=== PATIENT | female | born 1970 | race Caucasian/White ===

== ENCOUNTER 2017-12-16 14:13 | Outpatient (CLI) | payer OTHER | END 2017-12-16 14:14 | disposition home or self-care (01) | LOC: BICMAMMO 14:13 | PROVIDERS: ATTEND Family Medicine | DX: Z12.31 Encounter for screening mammogram for malignant neoplasm of breast (principal) | CPT/HCPCS: 77063; 77067 ==

== ENCOUNTER 2019-04-24 15:05 | Outpatient (CLI) | payer OTHER ==
--- NOTE | 2019-04-24 15:59 | MMO ---
Bilateral MAMMO Bilat Screen [facility]. CLINICAL HISTORY: Patient is 48 years old and is seen for screening. The patient has no family history of breast cancer. The patient has no personal history of cancer. VIEWS: The views performed were: bilateral craniocaudal with tomosynthesis and bilateral mediolateral oblique with tomosynthesis. FILMS COMPARED: The present examination has been compared to prior imaging studies performed at [facility] on 08/20/2009, 01/06/2015, 12/01/2016 and 12/16/2017. This study has been interpreted with the assistance of computer-aided detection. MAMMOGRAM FINDINGS: The breasts are heterogeneously dense, which could obscure a lesion on mammography. Benign calcifications are noted bilaterally. There are no suspicious masses, suspicious calcifications, or new areas of architectural distortion. IMPRESSION: THERE IS NO MAMMOGRAPHIC EVIDENCE OF MALIGNANCY. A ROUTINE FOLLOW-UP MAMMOGRAM IN 1 YEAR IS RECOMMENDED. THE RESULTS OF THIS EXAM WERE SENT TO THE PATIENT. ACR BI-RADS Category 2 - Benign finding MAMMOGRAPHY NOTE: 1. A negative mammogram report should not delay a biopsy if a dominant of clinically suspicious mass is present. 2. Approximately 10% to 15% of breast cancers are not detected by mammography. 3. Adenosis and dense breasts may obscure an underlying neoplasm. Reported by: MELA WALLACE MD Electonically Signed: [id number]
== END 2019-04-24 15:06 | disposition home or self-care (01) ==
LOC: BICMAMMO 15:05
PROVIDERS: ATTEND Family Medicine
DX: Z12.31 Encounter for screening mammogram for malignant neoplasm of breast (principal)
CPT/HCPCS: 77063; 77067

== ENCOUNTER 2020-01-08 07:29 | Outpatient (CLI) | payer OTHER ==
--- NOTE | 2020-01-08 08:29 | CT ---
EXAM: CT ABDOMEN AND PELVIS HISTORY: Lower abdominal pain. Hematuria. COMPARISON: None. Procedure: Multiple contiguous axial images were obtained and a CT of the abdomen and pelvis with IV contrast. C oronal reformats were performed. FINDINGS: Lower Chest: within normal limits. Vessels: Normal caliber aorta. Heart: Normal heart size Abdomen: Portal vein:Patent Gallbladder: No calcified gallstones. Normal caliber wall. Liver: within normal limits. Pancreas: within normal limits. Spleen: within normal limits. Adrenals: within normal limits. Kidneys: Symmetric enhancement. No obstructive uropathy. Peritoneum: No ascites or free air, no fluid collection. Bowel: Limited evaluation due to the lack of oral contrast administration. No evidence of bowel obstr uction. Ileocecal junction is unremarkable. Normal caliber appendix. Scattered fecal material in a nondistended, nondilated colon. Mesentery and Retroperitoneum: No enlarged mesenteric or retroperitoneal lymph nodes. Abdominal Wall: Umbilical hernia containing mesenteric fat Pelvis: Reproductive Organs: Uterus has a heterogeneous appearance along with possible endometrial fluid. The left and right adnexa have a grossly normal appearance. There is abnormal soft tissue attenuation along the lower uterine segment. Correlate for possible cervical pathology extending into the vaginal vault. Pelvis: No mass, lymphadenopathy, free air or free fluid. Bladder: within normal limits. Bones: within normal limits. IMPRESSION: 1. No evidence of bowel obstruction 2. Normal caliber appendix 3. Abnormal soft tissue attenuation involving the lower uterine segment extending into the vaginal va ult. Possible fluid in the vaginal vault along with mild heterogeneity of the myometrium. Correlate for cervical pathology. [employer]ION [employer]IATE consultation is recommended Results of the study conveyed to Dr. Rashad Garcia via [employer] connect 01/08/2020 at 8:25 PM Code CR
[2020-01-08] MEDS ORDERED: Iopamidol-370 76% 500 ML 1 ML ONE (10:52)
== END 2020-01-08 07:30 | disposition home or self-care (01) ==
LOC: BICCT 07:29
PROVIDERS: ATTEND Specialist
DX: R31.29 Other microscopic hematuria (principal)
CPT/HCPCS: 74177; Q9967

== ENCOUNTER 2020-01-24 12:27 | Outpatient (CLI) | payer OTHER ==
--- NOTE | 2020-01-24 14:51 | MRI ---
MRI Pelvis W Con History: Pelvic pain. Menorrhagia. Comparison: CT 01/08/2020. Ultrasound 11/26/2019 Findings: Evaluation for tumor is severely limited due to lack of a complete examination nor multipha se acquisition in the sagittal plane with small field of view. Nabothian cysts of the cervix. No definite myometrial or endometrial mass is appreciated. Multiple foci of nonenhancement along the left adnexa. No iliac adenopathy. No dilated loops of bowel. Musculature is normal. No acute osseous abnormality. Impression: 1. Multiple nabothian cysts throughout the cervix without definite mass although exam is limited due to lack of multiphase acquisition in the sagittal plane with small [id number] nor are there noncontrast sequences available for review. 2. No metastatic pelvic adenopathy. 3. Multiple nonenhancing foci of the left adnexa likely cysts. 4. Repeat examination with the correct pre and postcontrast imaging sequences with postcontrast small field of view sagittal sequences recommended. 5. Small enhancing erosion of the inferior margin of the pubic symphysis.
== END 2020-01-24 12:28 | disposition home or self-care (01) ==
LOC: SCSMRI 12:27
PROVIDERS: ATTEND Obstetrics & Gynecology Gynecologic Oncology
DX: N85.8 Other specified noninflammatory disorders of uterus (principal); N88.8 Other specified noninflammatory disorders of cervix uteri
CPT/HCPCS: 72196

== ENCOUNTER 2021-07-24 08:43 | Outpatient (CLI) | payer BC | END 2021-07-24 08:44 | disposition home or self-care (01) | LOC: RAD 08:43 | PROVIDERS: ATTEND Family Medicine | DX: M25.552 Pain in left hip (principal); M53.3 Sacrococcygeal disorders, not elsewhere classified; M16.12 Unilateral primary osteoarthritis, left hip | CPT/HCPCS: 72170 ==

== ENCOUNTER 2022-11-19 14:25 | Outpatient (CLI) | payer BC ==
[~2022-11-19 14:25] MED LIST: Magnevist 469MG/ML 20 ML VIAL ONE
== END 2022-11-19 14:26 | disposition home or self-care (01) ==
LOC: BICMRI 14:25
PROVIDERS: ATTEND Family Medicine
DX: R51.9 Headache, unspecified (principal)
CPT/HCPCS: 70553; A9579